=== PATIENT | male | born 2000 | race Two or more races ===

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

== ENCOUNTER 2019-04-09 12:18 | Emergency (ER) | payer OTHER ==
[~2019-04-09] VITALS: Ht 172.7 cm; Wt 77.1 kg
[~2019-04-09 12:18] MED LIST changes: +AMOXICILLIN500 MG ORAL; +IBUPROFEN600 MG ORAL
[2019-04-09] MEDS ORDERED: NKM (12:25)
--- NOTE | 2019-04-09 12:30 | NUR ---
ED Nurse Note: Patient walked into ED c/o ingrown toe nail on the right foot. patient reports it has been painful for 1 week patient tried to cut the toe nail It appears to be red and swollen
[2019-04-09 13:13] VITALS: BP 113/70
[2019-04-09] MEDS ORDERED: Lidocaine 1% MPF 10mg/ml 5ml INJ ONE (13:30)
--- NOTE | 2019-04-09 13:35 | Emergency Room Report ---
History of Present Illness General Chief Complaint: Pain Source: Patient Present Illness HPI 18-year-old male presents to the emergency department complaining of 10/10 pain , tenderness and swelling to the cuticle around the right great toenail. he denies trauma or fall, fevers or chills. Patient reports he has been trying hot water soaks with no relief. Patient states she also attempted to cut the nail himself which also did not provide any relief. No relieving factors at this time. He denies taking blood thinning medications. States he is up-to-date with his tetanus vaccination. Allergies: Coded Allergies: No Known Allergies (Unverified , 08/27/12) Patient History Past Medical History: see triage record Past Surgical History: none Pertinent Family History: none Immunizations: UTD Reviewed Nursing Documentation: PMH: Agreed; PSxH: Agreed Nursing Documentation-PMH Past Medical History: No Stated History Review of Systems All Other Systems: negative except mentioned in HPI Physical Exam Vital Signs Date Time Temp Pulse Resp B/P (MAP) Pulse Ox O2 Delivery O2 Flow Rate FiO2 04/09/19 12:23 98.2 58 16 97 Room Air 04/09/19 13:13 113/70 Sp02 EP Interpretation: reviewed, normal General Appearance: no apparent distress, alert, GCS 15, non-toxic Head: normocephalic, atraumatic Eyes: bilateral eye normal inspection, bilateral eye PERRL ENT: hearing grossly normal, normal voice Neck: full range of motion Respiratory: lungs clear, normal breath sounds, speaking full sentences Cardiovascular #1: regular rate, rhythm, normal capillary refill Musculoskeletal: back normal, gait/station normal, normal range of motion, tender - left great toe distally about the cuticle line. Neurologic: alert, oriented x3, responsive, motor strength/tone normal, sensory intact, speech normal, grossly normal Psychiatric: judgement/insight normal Skin: other - ingrown toenail of the right great toe.- erythema, swelling, tenderness and purulence about the cuticle of the right great toe. Lymphatic: no adenopathy Procedures Additional Procedure Procedure Narrative Wedge resection procedure: - verbal permission was obtained. - extremity involved is the left great toe -5cc of Lidocaine 1% plain was injected in a digital block fashion, good anesthesia was obtained. - The extremity was Cleaned and draped in a sterile fashion - The lateral aspect of the nail was exposed and isolated from the nail bed. -Section of the lateral aspect of the nail was cut by sterile scissors. - bleeding was controlled with direct pressure. -Sterile dressing was applied. Pt. tolerated the procedure well, there were no complications. Medical Decision Making PA Attestation Dr. Olivia is my supervising Physician whom patient management has been discussed with. Diagnostic Impression: Primary Impression: Ingrown toenail with infection ER Course 18-year-old male presents to the emergency department complaining of 10/10 pain , tenderness and swelling to the cuticle around the right great toenail. he denies trauma or fall, fevers or chills. Patient reports he has been trying hot water soaks with no relief. Patient states she also attempted to cut the nail himself which also did not provide any relief. No relieving factors at this time. He denies taking blood thinning medications. States he is up-to-date with his tetanus vaccination. Ddx considered but are not limited to cellulitis, paronychia, eponychia, ingrown toe nail, fracture, d/L, gout Vital signs: are WNL, pt. is afebrile H&PE are most consistent with ingrown toenail of the right great toe.- erythema , swelling, tenderness and purulence about the cuticle of the right great toe. ORDERS: none required at this time, the diagnosis is clinical ED INTERVENTIONS: --- Wedge resection of the right great toe nail. - verbal consent was received . - lesion was cleaned with betadine prep. - Wedge was resected from medial aspect of the right great toe. pt. tolerated well without complication. - sterile band-aid was then applied afterward. - will d/c pt. with PO abx. patient was placed in a hard soled cashew and provided with crutches. DISCHARGE: At this time pt. is stable for d/c to home. Will provide printed patient care instructions, and any necessary prescriptions. Care plan and follow up instructions have been discussed with the patient prior to discharge. Last Vital Signs Date Time Temp Pulse Resp B/P (MAP) Pulse Ox O2 Delivery O2 Flow Rate FiO2 04/09/19 13:13 98.2 62 16 113/70 97 Room Air Status: improved Disposition: HOME, SELF-CARE Condition: Stable Scripts Ibuprofen* (MOTRIN*) 600 Mg Tablet 600 MG ORAL THREE TIMES A DAY, #30 TAB 0 Refills Prov: Kim George 04/09/19 Acetaminophen With Codeine (T#3) (TYLENOL #3 TAB*) Y Tab 1 TAB ORAL Q8HR PRN for For Pain, #12 TAB Prov: Kim George 04/09/19 Mupirocin* (MUPIROCIN*) 22 Gm Oint...g. 1 APPLIC TOPIC THREE TIMES A DAY, #22 GM Prov: Kim George 04/09/19 Amoxicillin/Potassium Clav 875-125* (AUGMENTIN 875-125 TABLET*) 1 Each Tablet 1 TAB ORAL TWICE A DAY for 7 Days, #14 TAB Prov: Kim George 04/09/19 Referrals: [facility]ERR[facility] (PCP) Departure Forms: Return to Work Return to Work Date: April 13, 2019 Work Restrictions: No Heavy Lifting, No Prolonged Standing Other Restrictions: light duty. May return Sooner if Symptoms have resolved. Return to Full Activity: April 16, 2019 Patient Instructions: Nina Galan Additional Instructions: Take medications as directed. Follow up with a Primary Care Provider in 3-5 days, even if your symptoms have resolved. --Please review list of primary care clinics, if you do not already have a primary care provider Return sooner to ED if new symptoms occur, or current symptoms become worse. Do not drink alcohol, drive, or operate heavy machinery while taking Tylenol # 3 as this may cause drowsiness. - Please note that this Emergency Department Report was dictated using [employer] s[employer] installer technology software, occasionally this can lead to erroneous entry secondary to interpretation by the dictation equipment. Kim George April 09, 2019 13:35
[2019-04-09] MEDS ORDERED: IBUPROFEN600 MG ORAL (14:29)
[2019-04-09] MEDS ORDERED: MUPIROCIN22 GM TOPIC (14:29)
[2019-04-09] MEDS ORDERED: AUGMENTIN 875-1 EAC1 ORAL (14:29)
[2019-04-09] MEDS ORDERED: ACETAMINOPHEN-1 EAC1 ORAL (14:29)
[2019-04-09] MEDS ORDERED: Bacitracin Oint UD TOPIC ONE (14:30)
[2019-04-09 14:42] VITALS: BP 113/70
--- NOTE | 2019-04-09 14:42 | NUR ---
ER DISCHARGE NOTE: Patient is cleared to be discharged per MANJIT BACH, pt is aox4, on room air, with stable vital signs. pt was given dc and prescription instructions, pt was able to verbalize understanding, pt id band and removed without complications. pt is able to ambulate with steady gait. Dressing applied as ordered. pt took all belongings.
== END 2019-04-09 14:42 | disposition home or self-care (01) ==
LOC: EMR 12:53
DX: L60.0 Ingrowing nail (principal)
CPT/HCPCS: 11750; 99283; Z7502

== ENCOUNTER 2019-09-08 22:26 | Emergency (ER) | payer OTHER ==
[~2019-09-08] VITALS: Ht 170.2 cm; Wt 77.1 kg
[~2019-09-08 22:26] MED LIST changes: +ACETAMINOPHEN-1 EAC1 ORAL; +AUGMENTIN 875-1 EAC1 ORAL; +MUPIROCIN22 GM TOPIC; +NKM
--- NOTE | 2019-09-08 22:35 | NUR ---
ED Nurse Note: pt walked in ED c/o dizziness and near syncope, pt reports he was just staying home when the incident occured about 30 min ago, pt reports he felt weakness on left foot but denies any pain nor any recent injuries. pt denies any substance drug use, drinking alcohol nor smoking, pt aA&ox4, gcs=15, skin warm and dry, normal skin color, resp even and unlabored on RA, -n/v/d, ambulates w/ steady gait, will cont monitor. vss. sinus rhythm on campus monitor.
--- NOTE | 2019-09-08 22:53 | Emergency Room Report ---
History of Present Illness General Chief Complaint: Dizziness Source: Patient Present Illness HPI The patient presents with vertigo and left leg weakness that began when he stood up at 9:50 tonight. He has never had symptoms like that. He felt like he was falling to the left-hand side and also the world was spinning. He did not feel that he was about to pass out. He continues to have left leg weakness but is able to ambulate. He also is complaining about a central forehead headache that /. He has occasional headaches like this. The vertigo is improved but the left leg weakness persists. He has a family history of diabetes but denies diabetes himself. He denies any drugs or alcohol and does not smoke. He is not taking a blood thinner. There has been no trauma. No tinnitus or change in hearing. He felt nausea at the time and vomited up some saliva but no food stuff. The nausea is somewhat improved at this time. He has had headaches like this in the past however without weakness or dizziness. The patient is right-handed Allergies: Coded Allergies: No Known Allergies (Unverified , 08/27/12) Patient History Past Medical History: see triage record Pertinent Family History: DM Social History: Denies: smoking, alcohol use, drug use Social History Narrative here with Mom Reviewed Nursing Documentation: PMH: Agreed; PSxH: Agreed Nursing Documentation-PMH Past Medical History: No Stated History Review of Systems All Other Systems: negative except mentioned in HPI Physical Exam Vital Signs Date Time Temp Pulse Resp B/P (MAP) Pulse Ox O2 Delivery O2 Flow Rate FiO2 09/08/19 22:28 97.9 75 18 125/81 (96) 97 Room Air Sp02 EP Interpretation: reviewed, normal General Appearance: well appearing, no apparent distress, GCS 15 Head: normocephalic, atraumatic Eyes: bilateral eye normal inspection, bilateral eye PERRL, bilateral eye EOMI - No nystagmus ENT: TMs + canals normal, moist mucus membranes Neck: supple Respiratory: lungs clear, normal breath sounds Cardiovascular #1: regular rate, rhythm Cardiovascular #2: 2+ radial (R) Gastrointestinal: normal inspection, normal bowel sounds, non tender, no mass, non-distended Musculoskeletal: back normal, gait/station normal, normal range of motion Neurologic: alert, oriented x3, tunnel drier operator III-XII nml as tested, motor strength/tone normal - Objective left leg weakness but 5/5 strength no drift, DTRs symmetric, sensory intact, cerebellar normal, normal gait, speech normal, other - no drift Psychiatric: mood/affect normal Reflexes: 2+ knee (R), 2+ knee (L) Skin: no rash, warm/dry Medical Decision Making Diagnostic Impression: Primary Impression: Vertigo Additional Impressions: Transient subjective left leg weakness Headache Qualified Codes: R51 - Headache ER Course Patient presents with vertigo and left leg weakness. Differential includes positional vertigo, orthostatic vertigo, labyrinthitis, acute stroke, TIA, migraine variant amongst others. Some symptoms are improving however the patient still complains of weakness of the left leg which is disconcerting and indicates the CAT scan needs to be taken (objectively, the strength is 5/5). In addition patient will be evaluated with EKG and labs. The patient will be treated with IV hydration, Zofran, Ativan and Toradol. EKG sinus rhythm with sinus arrhythmia. J-point elevation and nonspecific ST-T wave changes. CT normal. Labs with glucose of 120. Otherwise normal. Patient symptoms resolved completely with treatment in the emergency department. The weakness in his leg has resolved. (It was subjective.) Discussed finding with patient and patient's mother. Patient advised that he needs to follow-up with his private physician tomorrow with copies of labs CT and EKG. He is advised to return if the symptoms return particularly the weakness. No risk for stroke identified at this time. No medical emergency at this time. Patient stable for outpatient observation and treatment. Laboratory Tests Test 09/08/19 22:56 09/08/19 23:15 Urine Color Pale yellow Urine Appearance Clear Urine pH 6 (4.5-8.0) Urine Specific [place] 1.025 (1.005-1.035) Urine Protein Negative (NEGATIVE) Urine Glucose (UA) Negative (NEGATIVE) Urine Ketones Negative (NEGATIVE) Urine Blood Negative (NEGATIVE) Urine Nitrite Negative (NEGATIVE) Urine Bilirubin Negative (NEGATIVE) Urine Urobilinogen Normal MG/DL (0.0-1.0) Urine Leukocyte Esterase Negative (NEGATIVE) Urine Opiates Screen Negative (NEGATIVE) Urine Barbiturates Screen Negative (NEGATIVE) Phencyclidine (PCP) Screen Negative (NEGATIVE) Urine Amphetamines Screen Negative (NEGATIVE) Urine Benzodiazepines Screen Negative (NEGATIVE) Urine Cocaine Screen Negative (NEGATIVE) Urine Marijuana (THC) Screen Negative (NEGATIVE) White Blood Count 8.9 K/UL (4.8-10.8) Red Blood Count 5.05 M/UL (4.70-6.10) Hemoglobin 15.1 G/DL (14.2-18.0) Hematocrit 43.6 % (42.0-52.0) Mean Corpuscular Volume 86 FL (80-99) Mean Corpuscular Hemoglobin 29.9 PG (27.0-31.0) Mean Corpuscular Hemoglobin Concent 34.7 G/DL (32.0-36.0) Red Cell Distribution Width 10.7 % (11.6-14.8) L Platelet Count 338 K/UL (150-450) Mean Platelet Volume 6.1 FL (6.5-10.1) L Neutrophils (%) (Auto) 44.9 % (45.0-75.0) L Lymphocytes (%) (Auto) 35.0 % (20.0-45.0) Monocytes (%) (Auto) 8.2 % (1.0-10.0) Eosinophils (%) (Auto) 10.8 % (0.0-3.0) H Basophils (%) (Auto) 1.1 % (0.0-2.0) Erythrocyte Sedimentation Rate 2 MM/HR (0-15) Prothrombin Time 10.7 SEC (9.30-11.50) Prothrombin Time INR 1.0 (0.9-1.1) PTT 27 SEC (23-33) Sodium Level 140 MMOL/L (136-145) Potassium Level 4.0 MMOL/L (3.5-5.1) Chloride Level 104 MMOL/L (98-107) Carbon Dioxide Level 30 MMOL/L (21-32) Anion Gap 7 mmol/L (5-15) Blood Urea Nitrogen 18 mg/dL (7-18) Creatinine 0.8 MG/DL (0.55-1.30) Estimate Glomerular Filtration Rate > 60 mL/min (>60) Glucose Level 120 MG/DL (74-106) H Calcium Level 9.2 MG/DL (8.5-10.1) Total Bilirubin 0.3 MG/DL (0.2-1.0) Aspartate Amino Transferase (AST) 11 U/L (15-37) L Alanine Aminotransferase (ALT) 20 U/L (12-78) Alkaline Phosphatase 76 U/L (46-116) Total Creatine Kinase 128 U/L (26-308) Troponin I 0.005 ng/mL (0.000-0.056) Total Protein 7.7 G/DL (6.4-8.2) Albumin 4.1 G/DL (3.4-5.0) Globulin 3.6 g/dL Albumin/Globulin Ratio 1.1 (1.0-2.7) EKG Diagnostic Results Rate: normal Rhythm: NSR ST Segments: no acute changes - J-point elevation Rhythm Strip Diag. Results EP Interpretation: yes Rhythm: NSR, no PVC's, no ectopy CT/MRI/US Diagnostic Results CT/MRI/US Diagnostic Results : Imaging Test Ordered: Head Impression No bleed, mass-effect or abnormality identified Last Vital Signs Date Time Temp Pulse Resp B/P (MAP) Pulse Ox O2 Delivery O2 Flow Rate FiO2 09/08/19 23:51 97.9 09/08/19 23:38 68 18 128/81 97 Room Air Status: improved Disposition: HOME, SELF-CARE Condition: Improved Scripts Meclizine Hcl* (MECLIZINE*) 12.5 Mg Tablet 12.5 MG ORAL THREE TIMES A DAY PRN for for dizziness, #6 TAB Prov: Reilly De Leon MD 09/09/19 Reilly De Leon MD Sep 08, 2019 22:53
--- NOTE | 2019-09-08 22:55 | NUR ---
ED Nurse Note: pt ambulated w/ steady gait to restroom for urine sample, noted yellow color urine, pt off to CT via wheelchair w/ radio talk show host.
[2019-09-08] MEDS ORDERED: Ketorolac 30mg Inj IV ONE (23:00)
[2019-09-08] MEDS ORDERED: LORazepam Inj 2mg/ml 1ml IV ONE (23:00)
--- NOTE | 2019-09-08 23:26 | Diagnostic Imaging Report ---
Indications: Vertigo and left leg weakness Technique: Spiral acquisitions obtained through the brain. Angled axial and coronal 5 x 5 mm slices were reconstructed. Total dose length product 1304 mGycm. CTDI vol(s) 60 mGy. Dose reduction achieved using automated exposure control Comparison: None. Findings: No acute intracranial hemorrhage or edema. No mass effect or midline shift. Normal poe-white differentiation. Normal size ventricles and extra axial CSF spaces. The calvarium is intact. The mastoids are clear. There is mucosal thickening versus mucous retention cysts in the inferior maxillary sinuses bilaterally. The visualized orbits are unremarkable. Impression: Negative Incidental finding of bilateral maxillary sinus disease This essentially agrees with the preliminary interpretation provided overnight by [facility] teleradiology service with minor variation. The CT scanner at [facility] is accredited by the [employer] and the scans are performed using protocols designed to limit radiation exposure to as low as reasonably achievable to attain images of sufficient resolution adequate for diagnostic evaluation.
--- NOTE | 2019-09-08 23:34 | NUR ---
ED Nurse Note: pt back from CT, resting, medications given per ERMD order, pt reports feeling better, will cont monitor, vss. mother and girlfriend at the bedside.
[2019-09-08 23:38] VITALS: BP 128/81
[2019-09-08 23:44] LABS: BASOPHILS % (AUTO) 1.1 % (0.0-2.0); EOSINOPHILS % (AUTO) 10.8 % (0.0-3.0); HEMATOCRIT 43.6 % (42.0-52.0); HEMOGLOBIN 15.1 G/DL (14.2-18.0); MEAN CORPUSCULAR VOLUME 86 FL (80-99); MONOCYTES % (AUTO) 8.2 % (1.0-10.0); NEUTROPHILS % (AUTO) 44.9 % (45.0-75.0); PLATELET COUNT 338 K/UL (150-450); RED BLOOD COUNT 5.05 M/UL (4.70-6.10); RED CELL DISTRIBUTION WIDTH 10.7 % (11.6-14.8); WHITE BLOOD COUNT 8.9 K/UL (4.8-10.8)
[2019-09-08 23:51] LABS: APPEARANCE,URINE CLEAR; BILIRUBIN, URINE NEGATIVE (NEGATIVE); COLOR,URINE PALE YELLOW; GLUCOSE, URINE (UA) NEGATIVE (NEGATIVE); KETONES,URINE NEGATIVE (NEGATIVE); LEUKOCYTE ESTERASE ,URINE NEGATIVE (NEGATIVE); NITRITE,URINE NEGATIVE (NEGATIVE); PH,URINE 6 (4.5-8.0); PROTEIN,URINE NEGATIVE (NEGATIVE); UROBILINOGEN,URINE NORMAL MG/DL (0.0-1.0)
[2019-09-08 23:54] LABS: ANION GAP 7 mmol/L (5-15); BLOOD UREA NITROGEN 18 mg/dL (7-18); CALCIUM 9.2 MG/DL (8.5-10.1); CARBON DIOXIDE 30 MMOL/L (21-32); CHLORIDE 104 MMOL/L (98-107); CREATININE 0.8 MG/DL (0.55-1.30); SODIUM 140 MMOL/L (136-145)
[2019-09-08 23:59] LABS: ALANINE AMINOTRANSFERASE 20 U/L (12-78); ALBUMIN 4.1 G/DL (3.4-5.0); ALBUMIN/GLOBULIN RATIO 1.1 (1.0-2.7); ALKALINE PHOSPHATASE 76 U/L (46-116); ASPARTATE AMINO TRANSFERASE 11 U/L (15-37); BILIRUBIN,TOTAL 0.3 MG/DL (0.2-1.0); CREATINE KINASE 128 U/L (26-308)
[2019-09-09] MEDS ORDERED: MECLIZINE HCL12.5 MG ORAL (01:19)
[2019-09-09 01:26] VITALS: BP 116/96
--- NOTE | 2019-09-09 01:26 | NUR ---
ED Nurse Note: pt cleared to be d/c per ermd, pt discharge and aftercare instruction w/ prescription given, pt advised to follow up with pcp or return to ed if changes in condition or worsening symptoms, pt education done via discussion and handout, pt verbalized understanding and agrees with plan, vss, ambulatory w/ steady gait, iv dc and id band removed, pt accompanied by mother and girlfriend left with all belongings.
== END 2019-09-09 01:26 | disposition home or self-care (01) ==
LOC: EMR 22:47
DX: R42 Dizziness and giddiness (principal); R51 Headache; R53.1 Weakness
CPT/HCPCS: 36415; 70450; 80053; 80307; 81003; 82550; 84484; 85025; 85610; 85651; 85730; 93005; 96361; 96374; 96375; J1885; J2405; Z7502; 99284; J7030